=== PATIENT | male | born 1985 | race Caucasian/White ===

== ENCOUNTER 2017-06-21 19:12 | Emergency (ER) | payer SELFPAY ==
[~2017-06-21 19:12] MED LIST: ISOVUE-370 76%-LOCM 1 ML ONE; Iopamidol 370 76% 50 ML VIAL FS ONE
[2017-06-21] MEDS ORDERED: Ketorolac Tromethamine 30 MG/ML VIAL ONE (19:39)
[2017-06-21 19:48] LABS: #Basophils 0.1 thou/uL (0.0-0.2); #Eosinphils 0.1 thou/uL (0.0-0.7); #Lymphocytes 3.4 thou/uL (1.20-3.40); #Monocytes 0.5 thou/uL (0.11-0.59); #Neutrophils 2.8 thou/uL (1.40-6.50); %Eosinophils 1.9 % (0.0-10.0); %Lymphocytes 49.2 % (21.0-51.0); %Monocytes 7.8 % (0.0-10.0); Hematocrit 47.2 % (42.0-52.0); Mean Platelet Volume 6.7 fL (7.4-10.4); Red Blood Cell (RBC) Count 5.02 mill/uL (4.70-6.10)
[2017-06-21 20:10] LABS: ALT (SGPT) 26 U/L (8-55); AST (SGOT) 18 U/L (5-34); Alkaline Phosphatase 44 U/L (40-150); Anion Gap 12 mmol/L (10-20); BUN (Urea Nitrogen) 16 mg/dL (8.9-20.6); Bilirubin, Total 0.7 mg/dL (0.2-1.2); Calc. Creatinine Clearance 0 mL/min (70-130); Calcium 9.7 mg/dL (7.8-10.44); Carbon Dioxide 28 mmol/L (22-29); Chloride 103 mmol/L (98-107); Estimated GFR-MDRD Greater than 90; Globulin 3.4 g/dL (2.4-3.5); Lipase 22 U/L (8-78); Protein, Total 7.6 g/dL (6.0-8.3)
[2017-06-21 20:38] LABS: Bilirubin Negative (Negative); Blood, Urine Negative (Negative); Glucose, Urine (Dipstick) Negative (Negative); Ketone, Urine Negative (Negative); Nitrite Negative (Negative); Protein, Urine (Dipstick) Negative (Neg-Trace); Urobilinogen 0.2 mg/dL (0.2-1.0)
--- NOTE | 2017-06-21 21:17 | CT ---
CONTRAST ENHANCED ABDOMEN AND PELVIC CT 06/21/17 CLINICAL HISTORY: Abdominal pain. No prior comparison. FINDINGS: The colon is diffusely unopacified with moderate retained fecal material. There is suggestion of a no rmal caliber and opacified appendix within the right lower quadrant. No evidence of bowel obstruction . Small hypodensity of the right kidney, too small to definitively characterize. No acute pathology o f the solid abdominal organs identified. Lung bases are clear where visualized. No free air. No ascit es. Regional skeletal structures reveal no acute findings. IMPRESSION: No CT evidence of acute appendicitis. Additional details are described above. POS: [facility]
== END 2017-06-21 22:48 | disposition home or self-care (01) ==
LOC: ERS 19:12
DX: R10.11 Right upper quadrant pain (principal)
CPT/HCPCS: 74177; 80053; 81003; 83690; 85025; 96361; 96374; J1885